=== PATIENT | male | born 1975 | race Caucasian/White ===

== ENCOUNTER 2024-10-08 13:45 | Inpatient (IN) ==
--- NOTE | 2024-10-08 16:05 | DR.ABDMALE ---
HPI Time seen Time Seen by Provider: 10/08/24 16:05 PCP Primary Care Physician: Cheryl Rincon Complaint Chief Complaint:: Patient states that since he has been having abdominal pain off and on. He states that he has had gallbladder problems in the past, but it subsided for a year so he didn't follow up with it. He states that the pain started back today and has not subsided. He states that the pain is mostly in his epigastric region at this time. He states that he has not been nauseated, ran any fevers, or had any loose stools. COVID-19 Coronavirus risk:travel/contact w/high risk person: No Has patient experienced Coronavirus symptoms: No Reviewed Nurses Notes Review: Yes Mode of arrival Mode of Arrival: Ambulatory Timing Onset of Chief Complaint: 10/06/24 PMH PMH Past Medical History: Yes Past Medical History: GERD and Hypertension Past Surgical History: No Family History History of Family Medical Conditions: Yes Family Medical History: Cancer and Hypertension Social History Type of Tobacco Use: None Does any household member use tobacco: Yes Do you use any recreational Drugs:: No Lives With: Family Lives Where: Home Travel Risk Coronavirus risk:travel/contact w/high risk person: No Has patient experienced Coronavirus symptoms: No Infectious screening In the last 2 months have you had wt loss of >10#?: NO Have you had fever, night sweats or hemotysis?: No Have you traveled outside the country in the last 6 months?: No Isolation: Standard PE Vital Signs Vital Signs: Temp Pulse Resp BP Pulse Ox O2 Del Method 10/08/24 21:18 18 10/08/24 16:22 18 10/08/24 13:45 98.7 F 77 18 162/95 96 Room Air ROR Labs Reviewed 10/08/24 16:16 10/08/24 16:16 Laboratory: WBC 9.8 X10^3/uL (3.6-10.0) 10/08/24 16:16 RBC 5.37 X10^6/uL (4.7-6.0) 10/08/24 16:16 Hgb 14.9 g/dL (13.5-18.0) 10/08/24 16:16 Hct 44.1 % (42.0-54.0) 10/08/24 16:16 MCV 82.1 fL (80.0-100.0) 10/08/24 16:16 MCH 27.7 pg (27.0-34.0) 10/08/24 16:16 MCHC 33.7 g/dL (33.0-35.0) 10/08/24 16:16 RDW 13.5 % (11.6-16.5) 10/08/24 16:16 Plt Count 318 X10^3/uL (150.0-450.0) 10/08/24 16:16 MPV 8.3 fL (7.4-11.0) 10/08/24 16:16 Neut % (Auto) 69.8 % (42.0-75.0) 10/08/24 16:16 Lymph % (Auto) 16.4 % (21.0-51.0) L 10/08/24 16:16 [place] % (Auto) 9.2 % (0.0-13.0) 10/08/24 16:16 Eos % (Auto) 3.9 % (0.9-2.9) H 10/08/24 16:16 Baso % (Auto) 0.7 % (0.2-1.0) 10/08/24 16:16 Neut # (Auto) 6.8 x10^3/uL (2.2-4.8) H 10/08/24 16:16 Lymph # (Auto) 1.6 X10^3/uL (1.3-2.9) 10/08/24 16:16 Spencer # (Auto) 0.9 x10^3/uL (0.3-0.8) H 10/08/24 16:16 Eos # (Auto) 0.4 x10^3/uL (0.0-0.2) H 10/08/24 16:16 Baso # (Auto) 0.1 X10^3/uL (0.0-0.1) 10/08/24 16:16 Absolute Nucleated RBC 0.1 /100WBC 10/08/24 16:16 Sodium 138 mmol/L (136-145) 10/08/24 16:16 Corrected Sodium TNP 10/08/24 16:16 Potassium 4.0 mmol/L (3.5-5.1) 10/08/24 16:16 Chloride 102 mmol/L (98-107) 10/08/24 16:16 Carbon Dioxide 29.1 mmol/L (21-32) 10/08/24 16:16 BUN 7 mg/dL (7-18) 10/08/24 16:16 Creatinine 1.01 mg/dL (0.70-1.30) 10/08/24 16:16 Est GFR (MDRD) Af Amer > 60 (>60) 10/08/24 16:16 Est GFR (MDRD) Non-Af > 60 (>60) 10/08/24 16:16 Glucose 96 mg/dL (65-99) 10/08/24 16:16 Lactic Acid 0.7 mmol/L (0.4-2.0) 10/08/24 18:18 Calcium 8.7 mg/dL (8.5-10.1) 10/08/24 16:16 Corrected Calcium TNP 10/08/24 16:16 Total Bilirubin 0.80 mg/dL (0.2-1.0) 10/08/24 16:16 AST 92 Units/L (15-37) H 10/08/24 16:16 ALT 151 Units/L (12-78) H 10/08/24 16:16 Alkaline Phosphatase 246 Units/L (46-116) H 10/08/24 16:16 Total Protein 9.0 g/dL (6.4-8.2) H 10/08/24 16:16 Albumin 3.9 g/dL (3.4-5.0) 10/08/24 16:16 Globulin 5.1 g/dL (2.5-4.5) H 10/08/24 16:16 Albumin/Globulin Ratio 0.8 Ratio (1.1-2.1) L 10/08/24 16:16 Amylase 25 Units/L (25-115) 10/08/24 16:16 Lipase 25 Units/L (16-77) 10/08/24 16:16 Specimen Type Clean catch urine 10/08/24 16:30 Urine Color Yellow (YELLOW) 10/08/24 16:30 Urine Appearance Clear (CLEAR) 10/08/24 16:30 Urine pH 6.0 (5.0 - 8.0) 10/08/24 16:30 Ur Specific [place] 1.025 (1.000-1.030) 10/08/24 16:30 Urine Protein Negative (NEGATIVE) 10/08/24 16:30 Urine Glucose (UA) Negative (NEGATIVE) 10/08/24 16:30 Urine Ketones Negative (NEGATIVE) 10/08/24 16:30 Urine Blood Negative (NEGATIVE) 10/08/24 16:30 Urine Nitrite Negative (NEGATIVE) 10/08/24 16:30 Urine Bilirubin Negative (NEGATIVE) 10/08/24 16:30 Urine Urobilinogen Normal (NORMAL) 10/08/24 16:30 Ur Leukocyte Esterase Negative (NEGATIVE) 10/08/24 16:30 Opioid Opioid Risk Tool Age ([place] box if 16-45): No History of Preadolescent Sexual Abuse: No Total: 0 Total Score Risk Category: Low Risk Copyright: Usman THAYER predicting aberrant behaviors Discharge Plan Diagnosis Discharge Problem: Pneumobilia, Diverticulitis, duodenum, Abscess of duodenum concurrent with and due to diverticulitis Abdominal pain Qualifiers: Abdominal location: upper abdomen, unspecified Qualified Code(s): R10.10 - Upper abdominal pain, unspecified Discharge Plan Patient Disposition: HOME, SELF-CARE Condition: Stable Prescriptions: No Action promethazine 25 mg tablet 25 mg PO Q6H PRN pantoprazole 40 mg tablet,delayed release (DR/EC) 40 mg PO QDAY amlodipine 2.5 mg tablet 2.5 mg PO QDAY Health Concerns: Post Hospitalization: new medications and changes needed to prevent readmission or further decline. Pt educated and given instructions on all concerns. Plan of Treatment: Continue with present treatment and follow up plan. Pt is to keep follow up appointment as instructed and take medications as ordered. Orders to Discharge Patient Discharge Orders: Transfer (Routine); Ordered 10/08/24 Ordered By: MOHIT ANSARI Follow ups/Referrals Follow ups/Referrals: NFD,None [Primary Care Provider] - 3 days Instructions Stand Alone Forms: Find Help Web Site, Post Hospital Follow Up Care Print Language: TURKMEN
[2024-10-08] MEDS: TORADOL 60 MG VIAL IM ONE (16:22)
[2024-10-08] MEDS: PEPCID TAB 40 MG PO ONE (16:23)
[2024-10-08 16:27] LABS: MEAN PLATELET VOLUME 8.3 fL (7.4-11.0); RED CELL DISTRIBUTION WIDTH 13.5 % (11.6-16.5)
[2024-10-08 16:35] LABS: CREATININE 1.01 mg/dL (0.70-1.30); eGFR NON BLACK RACES > 60 (>60)
[2024-10-08 16:45] LABS: BLOOD/HEMOGLOBIN,URINE NEGATIVE (NEGATIVE); LEUKOCYTE ESTERASE ,URINE NEGATIVE (NEGATIVE); NITRITES,URINE NEGATIVE (NEGATIVE)
[2024-10-08 16:46] LABS: APPEARANCE,URINE CLEAR (CLEAR)
--- NOTE | 2024-10-08 17:29 | CT ---
EXAM: ABDOMEN/PELVIS W/O CON HISTORY: Patient states that since he has been having abdominal pain off and on. He states that he has had gallbladder problems in the past; COMPARISON: Abdominopelvic CT examination dated March 17, 2023 TECHNIQUE: Serial abdominopelvic CT axial images were obtained from the lung bases to the pubic symphysis without the administration of intravenous radiopaque contrast. Coronal and sagittal reformatted abdominopelvic CT images were performed. Soft tissue, lung windows and bone window images were interpreted. Dose reduction techniques were utilized for the purposes of this examination as well. FINDINGS: The lung bases are clear. The heart is normal in size without a pericardial effusion. There is linear streaks of air seen throughout the left hepatic lobe which most likely reflects pneumobilia. However, correlation with lactic acid levels is recommended for assurance, nonetheless. Correlation with liver sonography is also recommended. The remainder of the gallbladder and liver soft tissue structures are unchanged from prior, given the inherent limitations of this noncontrast study. There is a slightly inflamed duodenal diverticulum observed with an associated air-fluid level. This could conceivably account for the patient's pain as well. Noncontrast CT images of the stomach, kidneys, spleen, adrenal glands, and remainder of the upper abdominal organs are unremarkable in appearance. There is a normal appearance of the appendix. There is no evidence for acute appendicitis, colitis, or diverticulitis. Prostate central calcifications are noted. The aorta is slightly athero sclerotic but nonaneurysmal. No free fluid, free air, or acute mesenteric inflammation is identified. No high-grade bowel obstruction or hernia defect is seen. The pelvic organs are unremarkable. The bones demonstrate no acute fracture or lytic lesion. No other acute abdominopelvic process is seen. IMPRESSION: Linear streaks of intrahepatic air are seen throughout the left hepatic lobe which most likely reflects pneumobilia. However, correlation with lactic acid levels is recommended for assurance, nonetheless. Correlation with liver sonography is also recommended. The remainder of the gallbladder and liver soft tissue structures are unchanged from prior, given the inherent limitations of this noncontrast study. Slightly inflamed duodenal diverticulum observed with an associated air-fluid level. This could conceivably account for the patient's pain as well. Normal appendix. No other acute or concerning abdominopelvic process is identified on this examination, given the inherent physical limitations of this noncontrast study. THIS IS AN ELECTRONICALLY VERIFIED FINAL REPORT 10/08/2024 5:25 PM - Electronically signed by Carmelo Rossi MD
[2024-10-08] MEDS: DILAUDID INJ IVP ONE (21:18)
[2024-10-08] MEDS: ZOFRAN INJ 4 MG VIAL IVP ONE (21:18)
[2024-10-08] MEDS: NS 1,000 ML IV 1,000 ML IV ONE (21:19)
[2024-10-08] MEDS ORDERED: CIPRO IV 400 MG PREMIX* 400 MG/200 ML IV.SOLN. IV ONE (21:27)
[2024-10-08] MEDS: CIPRO IV 400 MG PREMIX* 400 MG/200 ML IV.SOLN. IV SCH (21:28)
[2024-10-08] MEDS ORDERED: ZOFRAN INJ 4 MG VIAL IVP PRN (22:15)
[2024-10-08] MEDS: CIPRO IV 200 MG PREMIX* 200 MG/100 ML BAG IV STA (22:21)
[2024-10-08 22:56] VITALS: BMI 31.8
[2024-10-08] MEDS ORDERED: ULTANE GAS IN ONE (23:24)
[2024-10-08] MEDS ORDERED: PRECEDEX INJ VIAL ONE (23:24)
[2024-10-08] MEDS ORDERED: KETAMINE HCL ONE (23:24)
[2024-10-08] MEDS ORDERED: XYLOCAINE 2 % (PLAIN) ONE (23:24)
[2024-10-08] MEDS: DILAUDID INJ IVP PRN (23:48)
[2024-10-09 05:58] LABS: MEAN PLATELET VOLUME 8.6 fL (7.4-11.0); RED CELL DISTRIBUTION WIDTH 13.9 % (11.6-16.5)
[2024-10-09 06:09] LABS: CREATININE 1.04 mg/dL (0.70-1.30); eGFR NON BLACK RACES > 60 (>60)
[2024-10-09] MEDS: NS 1,000 ML IV 1,000 ML IV SCH (08:18)
--- NOTE | 2024-10-09 14:13 | DR.H&P ---
H&P History & Physical for Day of: H&P Date: 10/08/24 Chief Complaint Chief Complaint: RUQ PAIN History of Present Illness History of Present Illness: 49-year-old who went to the emergency room with abdominal pain primary right upper quadrant since of this past week. Patient is known to have "gallbladder problems" but not had any type of surgical intervention. He was evaluated with CT scan showing evidence of pneumobilia. There is no evidence of gallstones. CT scan in the past did show thickening of the gallbladder wall but this one did not. There was however evidence of the thickened inflammation of a duodenal diverticulum. No obvious free air. No prior abdominal surgery. History of hypertension and gastroesophageal reflux. Past Medical History Past Medical History: GERD and Hypertension Family History Family Medical History: Cancer and [place] Social History Does patient currently use any type of tobacco product: No Type of Tobacco Use: None Does any household member use tobacco: No Alcohol Use: None Drug Use: None Medications Home Medications: Home Medications Medication Instructions Recorded Confirmed Type amlodipine 2.5 mg tablet 2.5 mg PO QDAY 05/12/2308/28 History Allergies Allergies Allergy/AdvReac Type Severity Reaction Status Date / Time No Known Allergies Allergy Verified 10/08/24 21:54 Labs 10/09/24 05:45 10/09/24 05:45 Labs: Laboratory WBC 8.8 X10^3/uL (3.6-10.0) 10/09/24 05:45 RBC 5.37 X10^6/uL (4.7-6.0) 10/09/24 05:45 Hgb 15.2 g/dL (13.5-18.0) 10/09/24 05:45 Hct 43.9 % (42.0-54.0) 10/09/24 05:45 MCV 81.8 fL (80.0-100.0) 10/09/24 05:45 MCH 28.3 pg (27.0-34.0) 10/09/24 05:45 MCHC 34.6 g/dL (33.0-35.0) 10/09/24 05:45 RDW 13.9 % (11.6-16.5) 10/09/24 05:45 Plt Count 272 X10^3/uL (150.0-450.0) 10/09/24 05:45 MPV 8.6 fL (7.4-11.0) 10/09/24 05:45 Neut % (Auto) 67.8 % (42.0-75.0) 10/09/24 05:45 Lymph % (Auto) 15.7 % (21.0-51.0) L 10/09/24 05:45 [place] % (Auto) 10.1 % (0.0-13.0) 10/09/24 05:45 Eos % (Auto) 5.4 % (0.9-2.9) H 10/09/24 05:45 Baso % (Auto) 1.0 % (0.2-1.0) 10/09/24 05:45 Neut # (Auto) 5.9 x10^3/uL (2.2-4.8) H 10/09/24 05:45 Lymph # (Auto) 1.4 X10^3/uL (1.3-2.9) 10/09/24 05:45 [place] # (Auto) 0.9 x10^3/uL (0.3-0.8) H 10/09/24 05:45 Eos # (Auto) 0.5 x10^3/uL (0.0-0.2) H 10/09/24 05:45 Baso # (Auto) 0.1 X10^3/uL (0.0-0.1) 10/09/24 05:45 Absolute Nucleated RBC 0.1 /100WBC 10/09/24 05:45 Sodium 141 mmol/L (136-145) 10/09/24 05:45 Corrected Sodium TNP 10/09/24 05:45 Potassium 4.2 mmol/L (3.5-5.1) 10/09/24 05:45 Chloride 104 mmol/L (98-107) 10/09/24 05:45 Carbon Dioxide 32.7 mmol/L (21-32) H 10/09/24 05:45 BUN 12 mg/dL (7-18) 10/09/24 05:45 Creatinine 1.04 mg/dL (0.70-1.30) 10/09/24 05:45 Est GFR (MDRD) Af Amer > 60 (>60) 10/09/24 05:45 Est GFR (MDRD) Non-Af > 60 (>60) 10/09/24 05:45 Glucose 107 mg/dL (65-99) H 10/09/24 05:45 Lactic Acid 0.7 mmol/L (0.4-2.0) 10/08/24 18:18 Calcium 8.4 mg/dL (8.5-10.1) L 10/09/24 05:45 Corrected Calcium TNP 10/09/24 05:45 Total Bilirubin 1.30 mg/dL (0.2-1.0) H 10/09/24 05:45 AST 179 Units/L (15-37) H 10/09/24 05:45 ALT 199 Units/L (12-78) H 10/09/24 05:45 Alkaline Phosphatase 284 Units/L (46-116) H 10/09/24 05:45 Total Protein 8.4 g/dL (6.4-8.2) H 10/09/24 05:45 Albumin 3.6 g/dL (3.4-5.0) 10/09/24 05:45 Globulin 4.8 g/dL (2.5-4.5) H 10/09/24 05:45 Albumin/Globulin Ratio 0.8 Ratio (1.1-2.1) L 10/09/24 05:45 Amylase 25 Units/L (25-115) 10/08/24 16:16 Lipase 25 Units/L (16-77) 10/08/24 16:16 Specimen Type Clean catch urine 10/08/24 16:30 Urine Color Yellow (YELLOW) 10/08/24 16:30 Urine Appearance Clear (CLEAR) 10/08/24 16:30 Urine pH 6.0 (5.0 - 8.0) 10/08/24 16:30 Ur Specific [place] 1.025 (1.000-1.030) 10/08/24 16:30 Urine Protein Negative (NEGATIVE) 10/08/24 16:30 Urine Glucose (UA) Negative (NEGATIVE) 10/08/24 16:30 Urine Ketones Negative (NEGATIVE) 10/08/24 16:30 Urine Blood Negative (NEGATIVE) 10/08/24 16:30 Urine Nitrite Negative (NEGATIVE) 10/08/24 16:30 Urine Bilirubin Negative (NEGATIVE) 10/08/24 16:30 Urine Urobilinogen Normal (NORMAL) 10/08/24 16:30 Ur Leukocyte Esterase Negative (NEGATIVE) 10/08/24 16:30 Mild elevation of liver function test with the exception of bilirubin on admission. Review of Systems Constitutional: See HPI Eyes: No Symptoms Reported ENT: No Symptoms Reported Respiratory: No Symptoms Reported Cardiovascular: No Symptoms Reported Gastrointestinal: See HPI Genitourinary: No Symptoms Reported Musculoskeletal: No Symptoms Reported Skin: No Symptoms Reported Neurological: No Symptoms Reported Physical Exam Vital Signs: Vital Signs Temperature 98.4 F Temperature 98.4 F Pulse Rate [Left Radial] 66 Pulse Rate [Left Radial] 72 Respiratory Rate 19 Respiratory Rate 18 Respiratory Rate 18 Respiratory Rate 20 Blood Pressure [Right Arm] 124/78 Blood Pressure [Right Arm] 122/70 O2 Sat by Pulse Oximetry 98 O2 Sat by Pulse Oximetry 96 Oriented: Normal, Time, Person and Place Eyes: Normal Ear: Normal Nose: Normal Throat: Normal Respiratory: Clear Throughout Cardiovascular: Normal : Normal Palpation: Normal Tenderness: RLQ (mild) Skin: Normal Musculoskeletal: Normal Psychiatric: Normal Mood Description: Calm Affect: Normal Speech Pattern: Clear Assessment/Plan (1) Pneumobilia: Status: Acute Plan: Patient tender but not particularly so. Study not an acute abdomen. Will remain n.p.o. tonight and observe. (2) Abdominal pain: Qualifiers: Abdominal location: upper abdomen, unspecified Qualified Code(s): R 10.10 - Upper abdominal pain, unspecified Status: Acute (3) GERD (gastroesophageal reflux disease): Status: None Plan: IV Protonix (4) HTN (hypertension): Status: None Plan: Home medications (5) Diverticulitis, duodenum: Status: Acute Plan: IV antibiotics
--- NOTE | 2024-10-09 14:17 | NOTE.SOAP ---
Soap Note Note for Day of Date of Exam: 10/09/24 Subjective Data Subjective Data: Patient had quiet night. Pain controlled well with IV narcotics. Remains afebrile Objective Data Temperature: 98.4 F Pulse Rate: 66 Respiratory Rate: 19 Blood Pressure: 124/78 O2 Sat by Pulse Oximetry: 98 Objective Data: Oh exertion on room air. White blood cell count remains normal at 8.8. Has elevation of bilirubin to 1.3 now. Liver function tests increased from yesterday Assessment Assessment: Pneumobilia. Probable gallbladder inflammation. Aleida because pneumobilia is connection of the bowel to the bile duct in someway. Plan Plan: Will continue IV antibiotics. Clear liquids today. Will plan HIDA scan tomorrow.
[2024-10-10 05:04] LABS: MEAN PLATELET VOLUME 9.0 fL (7.4-11.0); RED CELL DISTRIBUTION WIDTH 13.4 % (11.6-16.5)
[2024-10-10 05:14] LABS: COR CA(FOR HYPOALB) 9.1 mg/dL (8.5-10.1); CREATININE 0.94 mg/dL (0.70-1.30); eGFR NON BLACK RACES > 60 (>60)
[2024-10-10] MEDS: TORADOL 30 MG VIAL IVP ONE (11:25)
--- NOTE | 2024-10-10 17:12 | NM ---
EXAM: HIDA/HEPATOBILIARY SCAN W/EF HISTORY: Abdomina; pain; 6.3mCi 99mTc Mebrofenin ; Dr. Lamb ( surgeon )said to quit if gb didn't show at 2 hrs. COMPARISON: CT abdomen and pelvis 10/08/2024 TECHNIQUE: 6.3 mCi Tc-99m mebrofenin were injected intravenously. Planar images were obtained. FINDINGS: There was prompt uptake and excretion by the liver. Activity is seen in the small bowel with no evidence of common bile duct obstruction. Gallbladder was not identified by 60 minutes. An additional set of images were obtained to 2 hours. Gallbladder was not identified by 2 hours. Other findings are most consistent with cholecystitis. This could be acute or chronic. IMPRESSION: 1. Findings suggesting cholecystitis THIS IS AN ELECTRONICALLY VERIFIED FINAL REPORT 10/10/2024 5:09 PM - Electronically signed by Jos Porter MD
[2024-10-11 05:52] LABS: MEAN PLATELET VOLUME 8.9 fL (7.4-11.0); RED CELL DISTRIBUTION WIDTH 13.3 % (11.6-16.5)
[2024-10-11 06:04] LABS: COR CA(FOR HYPOALB) 8.9 mg/dL (8.5-10.1); CREATININE 0.84 mg/dL (0.70-1.30); eGFR NON BLACK RACES > 60 (>60)
[2024-10-11] MEDS: HIBICLENS WASH EXT ONE (08:58)
--- NOTE | 2024-10-11 10:10 | NOTE.SOAP ---
Soap Note Note for Day of Date of Exam: 10/10/24 Subjective Data Subjective Data: Patient doing well with no complaints. Hepatobiliary scan shows prompt uptake of the liver and common bile duct but the gallbladder still did not visualize consistent with cholecystitis .Still complaining of significant pain in the right upper quadrant requiring narcotics for relief Objective Data Temperature: 98.4 F Pulse Rate: 52 Respiratory Rate: 22 Blood Pressure: 116/54 O2 Sat by Pulse Oximetry: 98 Objective Data: Mild right upper quadrant tenderness. Liver function test mildly mildly elevated with the exception of bilirubin which is normal. All this consistent with cholecystitis. Assessment Assessment: Nonvisualization of gallbladder on hepatobiliary scan consistent with cholecystitis Plan Plan: Will schedule for laparoscopic cholecystectomy. Discussed the risk and benefits of laparoscopic ostectomy as well as the risk of having to convert to an open operation and the risk of common bile duct injury which is small . He understands and agrees to proceed
[2024-10-11] MEDS: VERSED ONE (11:15)
[2024-10-11] MEDS: FENTANYL VIAL INJ 100 mcg ONE (11:15)
[2024-10-11] MEDS: NS 100 ML IV 100 ML ONE (11:16)
[2024-10-11] MEDS: ANCEF VIAL 1 GRAM ONE (11:16)
[2024-10-11] MEDS: ZEMURON 100 MG VIAL ONE (11:17)
[2024-10-11] MEDS: BRIDION ONE ×2 (11:18→13:46)
[2024-10-11] MEDS: TORADOL 30 MG VIAL ONE (11:18)
[2024-10-11] MEDS: DIPRIVAN VIAL 0 ML ONE (11:18)
[2024-10-11] MEDS: OFIRMEV IV 1000 MG VIAL 1,000 MG/100 ML VIAL IV ONE (11:18)
[2024-10-11] MEDS: REGLAN INJ 10 MG VIAL ONE (11:19)
[2024-10-11] MEDS: ZOFRAN INJ 4 MG VIAL ONE (11:19)
[2024-10-11] MEDS: PEPCID 20 MG VIAL ONE (11:20)
[2024-10-11] MEDS: LR 1,000 ML IV 1,000 ML IV ONE (11:28)
[2024-10-11] MEDS: LR 1,000 ML IV 700 ML IV PRN (11:30)
[2024-10-11] MEDS: PEPCID 20 MG VIAL IVP PRN (11:32)
[2024-10-11] MEDS: VERSED IVP PRN (11:33)
[2024-10-11] MEDS: REGLAN INJ 10 MG VIAL IVP PRN (11:33)
[2024-10-11] MEDS: ZOFRAN INJ 4 MG VIAL IVP PRN (11:33)
[2024-10-11] MEDS: ANCEF VIAL 1 GRAM IV PRN (11:34)
[2024-10-11] MEDS: KETAMINE HCL IV PRN (11:39)
[2024-10-11] MEDS ORDERED: XYLOCAINE 2 % (PLAIN) PRN (11:39)
[2024-10-11] MEDS: DIPRIVAN VIAL 150 ML IVP PRN (11:39)
[2024-10-11] MEDS: ZEMURON 100 MG VIAL IVP PRN (11:39)
[2024-10-11] MEDS: MARCAINE/EPINEPHRINE ONE (11:46)
[2024-10-11] MEDS: OFIRMEV IV 1000 MG VIAL 1,000 MG/100 ML VIAL IV PRN (11:49)
[2024-10-11] MEDS: TORADOL 30 MG VIAL IVP PRN (11:50)
[2024-10-11] MEDS: EPHEDRINE SULFATE INJ IVP PRN (11:53)
[2024-10-11] MEDS: EPHEDRINE SULFATE INJ ONE (11:56)
[2024-10-11] MEDS: PRECEDEX INJ VIAL ONE (12:02)
[2024-10-11] MEDS: FENTANYL VIAL INJ 100 mcg IVP PRN (12:03)
[2024-10-11] MEDS: PRECEDEX INJ VIAL IVP PRN (12:20)
[2024-10-11] MEDS ORDERED: ZOFRAN INJ 4 MG VIAL IVP PRN (12:22)
[2024-10-11] MEDS ORDERED: BENADRYL INJ 50 MG VIAL IVP PRN (12:22)
[2024-10-11] MEDS ORDERED: DILAUDID INJ IVP PRN (12:22)
[2024-10-11] MEDS ORDERED: BARHEMSYS INJ IVP PRN (12:22)
[2024-10-11] MEDS ORDERED: REGLAN INJ 10 MG VIAL IVP PRN (12:22)
[2024-10-11] MEDS: DILAUDID INJ IVP PRN (12:28)
[2024-10-11] MEDS: BRIDION IVP PRN (12:50)
[2024-10-11] MEDS: DILAUDID INJ ONE ×2 (13:45→14:07)
[2024-10-11] MEDS: DIPRIVAN VIAL 20 ML ONE (13:46)
--- NOTE | 2024-10-11 13:48 | OR.IMMED ---
IMMEDIATE POST-OP NOTE Immediate Post-Op Note Date of surgery/procedure: 10/11/24 Pre-Op Diagnosis: Cholecystitis, nonvisualization of the gallbladder on HIDA scan at 2 hours Post-Op Diagnosis: Cholecystitis, severe, multiple gallstones in the gallbladder including a larger one in the neck which was not commented on at the time of the CT scan. I believe with a called a duodenal diverticulum was actually a large stone. Procedure: Laparoscopic cholecystectomy, difficult case Surgeon/Spanish Translator: Christiano Lamb MD, FACS Findings: Very inflamed gallbladder covered with omentum. Dissection difficult. No stones comment upon initial CAT scan the patient had multiple small stones and a large stone in the neck of the gallbladder. Cystic duct and cystic artery identified, i.e. critical view of safety Estimated Blood Loss: 100cc Drains: Gavin Rangel (Flat Gavin-Rangel drain in Morison's pouch) Progress Notes: Patient extubated and taken to PACU then to the floor. Gavin- Rangel drain in place. Will begin diet. Routine laboratory values to follow-up next morning
[2024-10-11] MEDS: NORMODYNE INJ 20 MG VIAL ONE (14:08)
[2024-10-11] MEDS: PERCOCET TAB 5/325 MG PO PRN (14:22)
[2024-10-11] MEDS: PERCOCET TAB 5/325 MG ONE (14:25)
[2024-10-11] MEDS: CIPRO TAB 500 MG PO SCH (21:23)
[2024-10-12 06:00] LABS: MEAN PLATELET VOLUME 9.1 fL (7.4-11.0); RED CELL DISTRIBUTION WIDTH 13.4 % (11.6-16.5)
[2024-10-12 06:17] LABS: COR CA(FOR HYPOALB) 9.0 mg/dL (8.5-10.1); COR NA(FOR HYPERGLY) 138 mmol/L (136-145); CREATININE 0.94 mg/dL (0.70-1.30); eGFR NON BLACK RACES > 60 (>60)
[2024-10-12 08:00] VITALS: BP 150/74; PULSE 68; RESP 20; TEMP 98.3; O2SAT 98
[2024-10-12] MEDS: LOVENOX INJ 40 MG SYR SC SCH (08:28)
--- NOTE | 2024-10-12 10:45 | W.DIS.FURT ---
Summary of Discharge Discharge Summary of Date Date of Exam: 10/12/24 Admission Date Date of Admission: 10/10/24 Admission Diagnosis Patient Problems (Updated 10/12/24 @ 10:40 by Jin Lamb) Pneumobilia (Acute) K83.8 Abdominal pain (Acute) R10.9 Hospital Course: This is a 49-year-old male with "gallbladder problems "who presented with right upper quadrant pain of several days duration. He was evaluated in the emergency room on 10/10/[address] scan consistent possible pneumobilia. There was some thickening of the gallbladder wall but no obvious gallstones. There was question of diverticulum of the duodenum. Patient was afebrile at that time. Liver function tests mildly elevated with exception of bilirubin which was normal. There was no good evidence of any type of compromise of the biliary ducts into the bowel to account for the pneumobilia. Patient with a HIDA scan the next day which showed non- visualization of the gallbladder consistent with cholecystitis. He wa taken the operating suite on October 11 where he underwent a difficult laparoscopic cholecystectomy with large stones in the gallbladder previously unrecognized by the previous imaging studies. Was no evidence of duodenal diverticulum. I think they misinterpreted the large stone in the neck of the gallbladder as a diverticulum. Post procedure the patient has a Gavin- Rangel drain in place which is draining minimal amount of serosanguineous fluid. Follow-up laboratory values shows hemoglobin of 12.7. Liver function tests are resolving towards normal and bilirubin is normal. Patientto be discharged home today on his usual medications for high blood pressure. He also be given ciprofloxacin 500 mg twice daily times five days and Percocet 5mg po q 6 hrs PRN pain. We will instruct him how to care for the drain and see me in the office next Thursday, 17 October for removal of the drain. He will keep track of the drainage. Vital Signs: Vital Signs (72 hours) 10/09/24 11:32 10/09/24 11:39 10/09/24 12:02 Temperature 98.4 F Pulse Rate Pulse Rate [Left Radial] 66 Respiratory Rate 18 19 20 Blood Pressure Blood Pressure [Right Arm] 124/78 O2 Sat by Pulse Oximetry 98 Oxygen Delivery Method Room Air 10/09/24 14:16 10/09/24 15:23 10/09/24 17:01 Temperature 98.4 F 98.4 F Pulse Rate 66 Pulse Rate [Left Radial] 68 Respiratory Rate 19 20 20 Blood Pressure 124/78 Blood Pressure [Right Arm] 141/86 O2 Sat by Pulse Oximetry 98 99 Oxygen Delivery Method Room Air 10/09/24 17:31 10/09/24 19:00 10/09/24 19:41 Temperature 99.0 F Pulse Rate Pulse Rate [Left Radial] 61 Respiratory Rate 20 19 Blood Pressure Blood Pressure [Right Arm] 123/61 O2 Sat by Pulse Oximetry 97 Oxygen Delivery Method Room Air Room Air 10/10/24 00:00 10/10/24 04:00 10/10/24 07:00 Temperature 98.4 F 98.6 F Pulse Rate Pulse Rate [Left Radial] 55 L 60 Respiratory Rate 20 19 Blood Pressure Blood Pressure [Right Arm] 113/64 115/64 O2 Sat by Pulse Oximetry 97 96 Oxygen Delivery Method Room Air Room Air Room Air 10/10/24 08:00 10/10/24 11:25 10/10/24 11:55 Temperature 97.8 F Pulse Rate Pulse Rate [Left Radial] 62 Respiratory Rate 18 18 18 Blood Pressure Blood Pressure [Right Arm] 151/77 O2 Sat by Pulse Oximetry 98 Oxygen Delivery Method Room Air 10/10/24 12:00 10/10/24 16:00 10/10/24 16:03 Temperature 98.1 F 98.3 F Pulse Rate Pulse Rate [Left Radial] 58 L 64 Respiratory Rate 18 18 18 Blood Pressure Blood Pressure [Right Arm] 134/83 152/89 O2 Sat by Pulse Oximetry 96 98 Oxygen Delivery Method Room Air Room Air 10/10/24 16:33 10/10/24 19:00 10/10/24 20:00 Temperature 98.0 F Pulse Rate Pulse Rate [Left Radial] 61 Respiratory Rate 18 19 Blood Pressure Blood Pressure [Right Arm] 136/65 O2 Sat by Pulse Oximetry 98 Oxygen Delivery Method Room Air Room Air 10/10/24 22:14 10/10/24 23:21 10/11/24 03:33 Temperature 97.6 F 98.4 F Pulse Rate Pulse Rate [Left Radial] 57 L 52 L Respiratory Rate 20 21 22 Blood Pressure Blood Pressure [Right Arm] 126/59 116/59 O2 Sat by Pulse Oximetry 98 98 Oxygen Delivery Method Room Air Room Air 10/11/24 07:00 10/11/24 08:00 10/11/24 10:09 Temperature 98.2 F 98.4 F Pulse Rate 52 L Pulse Rate [Left Radial] 61 Respiratory Rate 20 22 Blood Pressure 116/54 Blood Pressure [Right Arm] 123/78 O2 Sat by Pulse Oximetry 97 98 Oxygen Delivery Method Room Air Room Air 10/11/24 11:31 10/11/24 12:00 10/11/24 13:02 Temperature 98.4 F 97.3 F L Pulse Rate 65 69 Pulse Rate [Left Radial] 68 Respiratory Rate 18 21 16 Blood Pressure 153/96 122/63 Blood Pressure [Right Arm] 131/77 O2 Sat by Pulse Oximetry 98 98 100 Oxygen Delivery Method Room Air Room Air Aerosol Face Tent 10/11/24 13:07 10/11/24 13:12 10/11/24 13:17 Temperature Pulse Rate 65 60 61 Pulse Rate [Left Radial] Respiratory Rate 16 16 16 Blood Pressure 127/67 122/61 114/58 Blood Pressure [Right Arm] O2 Sat by Pulse Oximetry 100 100 100 Oxygen Delivery Method Aerosol Face Tent Aerosol Face Tent Aerosol Face Tent 10/11/24 13:22 10/11/24 13:27 10/11/24 13:32 Temperature Pulse Rate 56 L 64 59 L Pulse Rate [Left Radial] Respiratory Rate 17 17 18 Blood Pressure 114/58 110/56 117/58 Blood Pressure [Right Arm] O2 Sat by Pulse Oximetry 99 99 99 Oxygen Delivery Method Nasal Cannula Nasal Cannula Nasal Cannula 10/11/24 13:40 10/11/24 13:55 10/11/24 14:10 Temperature 97.7 F 97.6 F 97.6 F Pulse Rate Pulse Rate [Left Radial] 58 L 62 58 L Respiratory Rate 20 18 17 Blood Pressure Blood Pressure [Right Arm] 127/63 127/70 129/62 O2 Sat by Pulse Oximetry 95 95 96 Oxygen Delivery Method 10/11/24 14:22 10/11/24 14:25 10/11/24 14:25 Temperature 97.6 F Pulse Rate Pulse Rate [Left Radial] 62 Respiratory Rate 20 20 18 Blood Pressure Blood Pressure [Right Arm] 123/69 O2 Sat by Pulse Oximetry 95 Oxygen Delivery Method 10/11/24 14:40 10/11/24 15:22 10/11/24 15:40 Temperature 98.2 F 98.4 F Pulse Rate Pulse Rate [Left Radial] 64 78 Respiratory Rate 17 20 18 Blood Pressure Blood Pressure [Right Arm] 104/63 112/62 O2 Sat by Pulse Oximetry 95 96 Oxygen Delivery Method 10/11/24 16:40 10/11/24 17:40 10/11/24 18:39 Temperature 98.4 F 98.0 F 98.0 F Pulse Rate Pulse Rate [Left Radial] 75 66 65 Respiratory Rate 20 18 19 Blood Pressure Blood Pressure [Right Arm] 111/58 130/76 142/74 O2 Sat by Pulse Oximetry 99 99 95 Oxygen Delivery Method 10/11/24 19:00 10/11/24 20:00 10/12/24 00:00 Temperature 100.0 F H 98.8 F Pulse Rate Pulse Rate [Left Radial] 74 67 Respiratory Rate 19 18 Blood Pressure Blood Pressure [Right Arm] 117/73 130/66 O2 Sat by Pulse Oximetry 95 96 Oxygen Delivery Method Room Air Room Air Room Air 10/12/24 04:00 10/12/24 07:00 10/12/24 08:00 Temperature 98.5 F 98.3 F Pulse Rate Pulse Rate [Left Radial] 73 68 Respiratory Rate 18 20 Blood Pressure Blood Pressure [Right Arm] 157/82 150/74 O2 Sat by Pulse Oximetry 96 98 Oxygen Delivery Method Room Air Room Air Room Air 10/12/24 08:55 Temperature Pulse Rate Pulse Rate [Left Radial] Respiratory Rate Blood Pressure Blood Pressure [Right Arm] O2 Sat by Pulse Oximetry Oxygen Delivery Method Room Air Labs: Laboratory Last Values WBC 11.4 X10^3/uL (3.6-10.0) H 10/12/24 05:31 RBC 4.51 X10^6/uL (4.7-6.0) L 10/12/24 05:31 Hgb 12.7 g/dL (13.5-18.0) L 10/12/24 05:31 Hct 36.9 % (42.0-54.0) L 10/12/24 05:31 MCV 81.8 fL (80.0-100.0) 10/12/24 05:31 MCH 28.2 pg (27.0-34.0) 10/12/24 05:31 MCHC 34.4 g/dL (33.0-35.0) 10/12/24 05:31 RDW 13.4 % (11.6-16.5) 10/12/24 05:31 Plt Count 275 X10^3/uL (150.0-450.0) 10/12/24 05:31 MPV 9.1 fL (7.4-11.0) 10/12/24 05:31 Neut % (Auto) 83.2 % (42.0-75.0) H 10/12/24 05:31 Lymph % (Auto) 8.8 % (21.0-51.0) L 10/12/24 05:31 [place] % (Auto) 6.8 % (0.0-13.0) 10/12/24 05:31 Eos % (Auto) 0.6 % (0.9-2.9) L 10/12/24 05:31 Baso % (Auto) 0.6 % (0.2-1.0) 10/12/24 05:31 Neut # (Auto) 9.5 x10^3/uL (2.2-4.8) H 10/12/24 05:31 Lymph # (Auto) 1.0 X10^3/uL (1.3-2.9) L 10/12/24 05:31 [place] # (Auto) 0.8 x10^3/uL (0.3-0.8) 10/12/24 05:31 Eos # (Auto) 0.1 x10^3/uL (0.0-0.2) 10/12/24 05:31 Baso # (Auto) 0.1 X10^3/uL (0.0-0.1) 10/12/24 05:31 Absolute Nucleated RBC 0.0 /100WBC 10/12/24 05:31 Sodium 137 mmol/L (136-145) 10/12/24 05:31 Corrected Sodium 138 mmol/L (136-145) 10/12/24 05:31 Potassium 3.9 mmol/L (3.5-5.1) 10/12/24 05:31 Chloride 104 mmol/L (98-107) 10/12/24 05:31 Carbon Dioxide 27.2 mmol/L (21-32) 10/12/24 05:31 BUN 11 mg/dL (7-18) 10/12/24 05:31 Creatinine 0.94 mg/dL (0.70-1.30) 10/12/24 05:31 Est GFR (MDRD) Af Amer > 60 (>60) 10/12/24 05:31 Est GFR (MDRD) Non-Af > 60 (>60) 10/12/24 05:31 Glucose 148 mg/dL (65-99) H 10/12/24 05:31 Lactic Acid 0.7 mmol/L (0.4-2.0) 10/08/24 18:18 Calcium 8.0 mg/dL (8.5-10.1) L 10/12/24 05:31 Corrected Calcium 9.0 mg/dL (8.5-10.1) 10/12/24 05:31 Total Bilirubin 0.80 mg/dL (0.2-1.0) 10/12/24 05:31 AST 26 Units/L (15-37) 10/12/24 05:31 ALT 88 Units/L (12-78) H 10/12/24 05:31 Alkaline Phosphatase 230 Units/L (46-116) H 10/12/24 05:31 Total Protein 7.2 g/dL (6.4-8.2) 10/12/24 05:31 Albumin 2.8 g/dL (3.4-5.0) L 10/12/24 05:31 Globulin 4.4 g/dL (2.5-4.5) 10/12/24 05:31 Albumin/Globulin Ratio 0.6 Ratio (1.1-2.1) L 10/12/24 05:31 Amylase 25 Units/L (25-115) 10/08/24 16:16 Lipase 25 Units/L (16-77) 10/08/24 16:16 Specimen Type Clean catch urine 10/08/24 16:30 Urine Color Yellow (YELLOW) 10/08/24 16:30 Urine Appearance Clear (CLEAR) 10/08/24 16:30 Urine pH 6.0 (5.0 - 8.0) 10/08/24 16:30 Ur Specific Fe [employer] 1.025 (1.000-1.030) 10/08/24 16:30 Urine Protein Negative (NEGATIVE) 10/08/24 16:30 Urine Glucose (UA) Negative (NEGATIVE) 10/08/24 16:30 Urine Ketones Negative (NEGATIVE) 10/08/24 16:30 Urine Blood Negative (NEGATIVE) 10/08/24 16:30 Urine Nitrite Negative (NEGATIVE) 10/08/24 16:30 Urine Bilirubin Negative (NEGATIVE) 10/08/24 16:30 Urine Urobilinogen Normal (NORMAL) 10/08/24 16:30 Ur Leukocyte Esterase Negative (NEGATIVE) 10/08/24 16:30 Reason For Visit: chronic cholecystitis and cholelithiasis Discharge Date Discharge Date: 10/12/24 Discharge Diagnosis All Active Problems (Updated 10/12/24 @ 10:40 by Jin Lamb) Pneumobilia (Acute) Abdominal pain (Acute) HTN (hypertension) (Chronic) Calculous cholecystitis (Chronic) Plan of Treatment: Continue with present treatment and follow up plan. Pt is to keep follow up appointment as instructed and take medications as ordered. Discharge Medications Discharge Medications: No Known Allergies Allergy (Verified 10/08/24 21:54) Discharge Disposition Assessment: see hospital course Discharge Plan Discharge Plan Hospital Course: This is a 49-year-old male with "gallbladder problems "who presented with right upper quadrant pain of several days duration. He was evaluated in the emergency room on 10/10/[address] scan consistent possible pneumobilia. There was some thickening of the gallbladder wall but no obvious gallstones. There was question of diverticulum of the duodenum. Patient was afebrile at that time. Liver function tests mildly elevated with exception of bilirubin which was normal. There was no good evidence of any type of compromise of the biliary ducts into the bowel to account for the pneumobilia. Patient with a HIDA scan the next day which showed non- visualization of the gallbladder consistent with cholecystitis. He wa taken the operating suite on October 11 where he underwent a difficult laparoscopic cholecystectomy with large stones in the gallbladder previously unrecognized by the previous imaging studies. Was no evidence of duodenal diverticulum. I think they misinterpreted the large stone in the neck of the gallbladder as a diverticulum. Post procedure the patient has a Gavin- Rangel drain in place which is draining minimal amount of serosanguineous fluid. Follow-up laboratory values shows hemoglobin of 12.7. Liver function tests are resolving towards normal and bilirubin is normal. Patientto be discharged home today on his usual medications for high blood pressure. He also be given ciprofloxacin 500 mg twice daily times five days and Percocet 5mg po q 6 hrs PRN pain. We will instruct him how to care for the drain and see me in the office next Thursday, 17 October for removal of the drain. He will keep track of the drainage. Patient Disposition: 01 HOME, SELF-CARE Condition: Stable Health Concerns: Post Hospitalization: new medications and changes needed to prevent readmission or further decline. Pt educated and given instructions on all concerns. Care Plan Goals: Patient will be instructed how to care for the drain and record drainage prior to follow-up with me next Plan of Treatment: Continue with present treatment and follow up plan. Pt is to keep follow up appointment as instructed and take medications as ordered. Assessment: see hospital course Prescriptions: New ciprofloxacin HCl [Cipro] 500 mg tablet 500 mg PO BID Qty: 10 0RF oxycodone-acetaminophen [Percocet] 5-325 mg tablet 1 tab PO Q6H MDD 4 PRNQty: 20 0RF Continued amlodipine 2.5 mg tablet 2.5 mg PO QDAY Follow ups/Referrals Follow ups/Referrals: [facility],None [Primary Care Provider] - 3 days Jin Lamb [STAFF PHYSICIAN, Unknown] - 10/19/24 3:00 pm Instructions Instructions: Laparoscopic Cholecystectomy, Care After Stand Alone Forms: Excuse From Work or School, Find Help Web Site, Post Hospital Follow Up Care Print Language: M[place]GR[place]
--- NOTE | 2024-10-12 11:08 | DR.OPNOTE ---
OP NOTE Pre-Op Diagnosis: Chronic cholecystitis Post-Op Diagnosis: Cholelithiasis and chronic cholecystitis Procedure Date Date Of Procedure: 10/11/24 Procedure: INDICATIONS : Cholelithiasis/cholecystitis PROCEDURE : Patient taken to the operative suite and placed in the supine position. General endotracheal anesthesia induced and the entire abdomen prepped and draped in sterile fashion. Patient placed in reverse Trendelenburg and rolled to the patient's left. Curvilinear incision made below the umbilicus in the midline and dissection carried down to the midline fascia. Holding sutures of 0 Vicryl placed on either side of the midline fascia and the fascia opened witha #15 knife blade. Peritoneum opened with Metzenbaum scissors and the abdominal cavity entered. Shi cannula placed and secured with holding sutures. Abdomen insufflated to 15 mm of Hg with carbon dioxide and under direct vision a 5 mm trocar placed in the epigastrium and two 5 mm trocars placed in the right upper quadrant subcostal area. The gallbladder elevated by grasping the fundus and dissection carried out in Calot's triangle defining the cystic duct and cystic artery, i.e. critical view of safety. This was very difficult due to severe cholecystitis and overlying omentum which had to be removed with electrocautery. The cystic duct and cyst artery were clipped proximally ,distally and divided. Peritoneum of the gallbladder incised with electrocautery and the gallbladder moved from the liver bed. A small remnant of the gallbladder just above the infundibulum was left in place and cauterized. The common bile duct was visualized. There was no active bleeding at the end of the case . A flat #10 Gavin-Rangel drain was placed in Elizabeth's pouch and brought out through the right lateral most 5 mm trocar incision. Drain was secured to the skin with a 2-0 silk suture ligature. All trocars removed. The fascia of the initial infraumbilical incision closed with interrupted 0 Vicryl sutures. All incisions then closed with 3-0 Vicryl subcutaneous sutures and Steri-Strips. A total of 15 cc of 0.5 percent Marcaine with epinephrine injected and distributed between the 5 incisions. Patient extubated and taken to PACU in good condition. An additional 5 mm trocar was placed in the left upper quadrant to place a 5 mm fan to hold the duodenum out of the way during the case. Type of Anesthesia: General Anesthetic w/ETT Findings: Chronic cholelithiasis and cholecystitis, difficult case secondary to severe Specimen/Pathology: Gallbladder with stonea Type of Fluids Used:: Lactated Ringers EBL: < 50 cc Drains/Tubes Placed: Gavin Rangel (Flat #10 Gavin-Rangel drain placed in Srinath son's pouch) Complications:: none Needle/Sponge Count:: correct Disposition/Condition: Pt. tolerated procedure without difficulty. Extubated in the OR and taken to PACU in stable condition.
== END 2024-10-12 13:00 | disposition home or self-care (01) | DRG 418 ==
LOC: MED/SURG 13:45 → ER 13:45 → MED/SURG 22:21
PROVIDERS: ADMIT Surgery; ATTEND Surgery
DX: K57.12 Diverticulitis of small intestine without perforation or abscess without bleeding; I10 Essential (primary) hypertension; K83.8 Other specified diseases of biliary tract; R10.10 Upper abdominal pain, unspecified; K80.12 Calculus of gallbladder with acute and chronic cholecystitis without obstruction; K21.9 Gastro-esophageal reflux disease without esophagitis